=== PATIENT | female | born 1995 | race Caucasian/White ===

== ENCOUNTER 2023-10-21 19:59 | Emergency (ER) | payer MEDICAID, SELFPAY ==
[2023-10-21 20:39] VITALS: BP 122/72; PULSE 75; RESP 18; TEMP 37; O2SAT 97; BMI 38.4
--- NOTE | 2023-10-21 20:39 | ED_ITS ---
HPI - General Adult General Chief complaint: General Medical Stated complaint: not feeling well Related Data Allergies Allergy/AdvReac Type Severity Reaction Status Date / Time No Known Allergies Allergy Verified 10/21/23 20:42 [facility] Social History Social History Advance Directives: No Advance Directives Information Provided: No Do you have a plan to hurt others: No Plan Physical Exam ED Vital Signs: BMI result Body Mass Index 38.4 Course Course Course Narrative: This is a rapid medical exam performed by Darien Handy NP: Additional HPI, ROS, PE not included below will be deferred to primary provider. Patient is a 28-year-old female presenting to the emergnency department with complaint of sore throat, headache, nasal congestion since yesterday. Took OTC cold medicine with little relief. Plan: viral and strep swabs Medical Decision Making Lab Data Labs: Lab Results 10/21/23 Range/Units 21:16 Influenza Type A (PCR) NEGATIVE (Negative) Influenza Type B (PCR) NEGATIVE (Negative) RSV RNA Qual (PCR) NEGATIVE (Negative) SARS-CoV-2 RNA (RT-PCR) POSITIVE A (Negative) S. pyogenes GrpA FLACO Negative (Negative) Discharge Plan Discharge Clinical Impression: Diagnosis unknown Patient Disposition: Left W/O Completing Treatment Discharge Date/Time: 10/21/23 22:36
[2023-10-21 21:31] LABS: IDNOW Serial# 6674DD1D; Strep A Nucleic Acid Negative (Negative)
[2023-10-21 22:05] LABS: Influenza A PCR NEGATIVE (Negative); Influenza B PCR NEGATIVE (Negative); Resp Syncy Virus RNA Qual PCR NEGATIVE (Negative); SARS COV2 PCR INHOUSE POSITIVE (Negative)
--- NOTE | 2023-10-21 22:29 | PC.NURSE ---
pt called nurse to exam room- wanted to know when she is going to be seen- advised she is on the list to be seen- pt aware she has covid- stated that she needed to get home to her daughter soon, apporx 10 min later, this nurse heard exam room door close, pt left exam room. cc aware.
== END 2023-10-21 22:36 | disposition left against medical advice (07) ==
PROVIDERS: Registered Nurse Emergency; Emergency Provider Emergency Medicine
DX: J02.9 Acute pharyngitis, unspecified (principal); R51.9 Headache, unspecified; R09.81 Nasal congestion; Z03.818 Encounter for observation for suspected exposure to other biological agents ruled out
CPT/HCPCS: 0241U; 87651; 99281